=== PATIENT | female | born 1970 | race Caucasian/White ===

== ENCOUNTER 2017-04-28 16:39 | Emergency (ER) | payer MEDICAID, MEDICARE ==
[2017-04-28] MEDS ORDERED: Acetaminophen/Codeine 30-300mg Tablet ONE (17:02)
[2017-04-28] MEDS ORDERED: Silver Sulfadiazine 1% Cream 50 GM JAR ONE (17:02)
[2017-04-28] MEDS ORDERED: Ondansetron ODT 4 MG TAB ONE (17:02)
== END 2017-04-28 17:25 | disposition home or self-care (01) ==
LOC: NAV ERS 16:39
DX: T25.212A Burn of second degree of left ankle, initial encounter (principal); E03.9 Hypothyroidism, unspecified; I10 Essential (primary) hypertension; I25.2 Old myocardial infarction; F41.9 Anxiety disorder, unspecified; F43.10 Post-traumatic stress disorder, unspecified; Z79.899 Other long term (current) drug therapy; X10.2XXA Contact with fats and cooking oils, initial encounter
CPT/HCPCS: 16020; Q0162

== ENCOUNTER 2017-05-10 16:54 | Emergency (ER) | payer MEDICAID, MEDICARE ==
[2017-05-10] MEDS ORDERED: Acetaminophen 500 MG TAB ONE (17:16)
--- NOTE | 2017-05-10 18:04 | RAD ---
THREE VIEWS OF THE LEFT ANKLE: 05/10/17 INDICATION: History of anxiety with repeated injuries of the left ankle. FINDINGS: No acute fracture or subluxation is evident. Visualized hindfoot appears within normal limits. IMPRESSION: No acute osseous abnormality. POS: LORIE
== END 2017-05-10 18:16 | disposition home or self-care (01) ==
LOC: NAV ERS 16:54
DX: S93.402A Sprain of unspecified ligament of left ankle, initial encounter (principal); T25.212D Burn of second degree of left ankle, subsequent encounter; E03.9 Hypothyroidism, unspecified; I10 Essential (primary) hypertension; I25.2 Old myocardial infarction; F43.10 Post-traumatic stress disorder, unspecified; F41.9 Anxiety disorder, unspecified; F17.210 Nicotine dependence, cigarettes, uncomplicated; Z79.899 Other long term (current) drug therapy; X50.1XXA Overexertion from prolonged static or awkward postures, initial encounter

== ENCOUNTER 2019-02-12 12:56 | Emergency (ER) | payer MEDICAID, MEDICARE ==
[2019-02-12] MEDS ORDERED: methylPREDNISolone Sod Succ/PF 125 MG/2 ML VIAL ONE (13:43)
[2019-02-12] MEDS ORDERED: Azithromycin 250 MG TAB ONE (13:51)
--- NOTE | 2019-02-12 13:56 | RAD ---
PORTABLE CHEST ONE VIEW: 02/12/2019 1:12 p.m. HISTORY: Dyspnea. COMPARISON: Exam from 12/09/2013. FINDINGS: The heart size is normal. The lungs are expanded without lobar consolidation, pneumothoraces or pleur al effusions. IMPRESSION: No acute process. POS: RONALDH
== END 2019-02-12 14:10 | disposition home or self-care (01) ==
LOC: NAV ERS 12:56
DX: J20.9 Acute bronchitis, unspecified (principal); E03.9 Hypothyroidism, unspecified; I10 Essential (primary) hypertension; I25.2 Old myocardial infarction; F17.210 Nicotine dependence, cigarettes, uncomplicated; F41.9 Anxiety disorder, unspecified; F43.10 Post-traumatic stress disorder, unspecified; Z79.899 Other long term (current) drug therapy
CPT/HCPCS: 71045; 94640; J2930; J7620

== ENCOUNTER 2020-06-01 18:27 | Emergency (ER) | payer MEDICARE, MEDICAID ==
[2020-06-01] MEDS ORDERED: Sodium Chloride 0.9% 1,000 ML ONE (18:49)
[2020-06-01 19:02] LABS: #Basophils 0.1 thou/uL (0.0-0.2); #Eosinphils 0.5 thou/uL (0.0-0.7); #Lymphocytes 3.1 thou/uL (1.20-3.40); #Monocytes 0.7 thou/uL (0.11-0.59); #Neutrophils 13.3 thou/uL (1.40-6.50); %Basophils 0.4 % (0.0-1.0); %Eosinophils 2.9 % (0.0-10.0); %Lymphocytes 17.6 % (21.0-51.0); %Monocytes 3.7 % (0.0-10.0); %Neutrophils 75.5 % (42.0-75.0); Mean Corpuscular Volume 90.4 fL (78.0-98.0); Mean Platelet Volume 6.4 fL (7.4-10.4); Platelet Count 410 thou/uL (130-400); RBC Distribution Width 12.4 % (11.5-14.5); Red Blood Cell (RBC) Count 3.55 mill/uL (4.20-5.40); White Blood Cell (WBC) Count 17.7 thou/uL (4.8-10.8)
[2020-06-01 19:28] LABS: ALT (SGPT) 6 U/L (8-55); AST (SGOT) 17 U/L (5-34); Albumin 3.8 g/dL (3.5-5.0); Alkaline Phosphatase 77 U/L (40-110); Anion Gap 16 mmol/L (10-20); BUN (Urea Nitrogen) 22 mg/dL (7.0-18.7); Bilirubin, Total 0.3 mg/dL (0.2-1.2); Calc. Creatinine Clearance 0 mL/min (70-130); Calcium 8.6 mg/dL (7.8-10.44); Carbon Dioxide 21 mmol/L (22-29); Chloride 102 mmol/L (98-107); Globulin 2.9 g/dL (2.4-3.5); Glucose 101 mg/dL (70-105); Protein, Total 6.7 g/dL (6.0-8.3); Sodium 135 mmol/L (136-145)
[2020-06-01] MEDS ORDERED: Azithromycin 250 MG TAB ONE (20:36)
== END 2020-06-01 20:40 | disposition home or self-care (01) ==
LOC: NAV ERS 18:27
DX: J20.9 Acute bronchitis, unspecified (principal); E03.9 Hypothyroidism, unspecified; I10 Essential (primary) hypertension; I25.2 Old myocardial infarction; Z87.891 Personal history of nicotine dependence; Z79.899 Other long term (current) drug therapy
CPT/HCPCS: 71045; 80053; 85025; J7050; J7620

== ENCOUNTER 2022-07-25 13:37 | Emergency (ER) | payer MEDICARE, MEDICAID ==
[2022-07-25] MEDS ORDERED: Lorazepam 2 MG/ML VIAL ONE (13:48)
[2022-07-25] MEDS ORDERED: Ketorolac Tromethamine 30 MG/ML VIAL ONE (13:48)
== END 2022-07-25 17:14 | disposition home or self-care (01) ==
LOC: NAV ERS 13:37
DX: F11.23 Opioid dependence with withdrawal (principal); E03.9 Hypothyroidism, unspecified; I10 Essential (primary) hypertension
CPT/HCPCS: 96374; 96375; J1885; J2060